=== PATIENT | female | born 2000 | race Two or more races ===

== ENCOUNTER 2020-01-15 08:13 | Observation (INO) | payer MEDICAID ==
[~2020-01-15] VITALS: Ht 160 cm; Wt 70.3 kg
[2020-01-15] MEDS ORDERED: FERR325T6 MT (09:15)
[2020-01-15] MEDS ORDERED: FOLI-43 MT (09:15)
[2020-01-15] MEDS ORDERED: PNV1TABL50 MT (09:15)
[2020-01-15 09:54] LABS: BASOPHILS % 0.3 % (0.0-2.0); EOSINOPHILS % 0.1 % (0.0-5.0); HEMATOCRIT. 35.3 % (36.0-48.0); HEMOGLOBIN. 12.1 g/dL (12.0-16.0); LYMPHOCYTES % 10.1 % (20.0-50.0); MEAN CORPUSCULAR HEMOGLOBIN 31.3 pg (28.0-32.0); MEAN CORPUSCULAR VOLUME 91.1 fL (81.0-99.0); MEAN PLATELET VOLUME 7.2 fl (7.4-10.4); MONOCYTES % 5.9 % (2.0-8.0); NEUTROPHILS % 83.6 % (40.0-76.0); PLATELET 332 x1000/uL (130-400); RED BLOOD CELL COUNT 3.87 mill/uL (4.2-5.4); RED CELL DISTRIBUTION WIDTH 13.4 % (11.6-14.6)
[2020-01-15 09:55] LABS: CLARITY URINE TURBID (CLEAR); COLOR URINE DARK YELLOW (YELLOW); KETONES URINE TRACE (NEGATIVE); LEUKOCYTE ESTERASE URINE 3+ (NEGATIVE); NITRITE URINE NEGATIVE (NEGATIVE); OCCULT BLOOD URINE TRACE (NEGATIVE); PROTEIN URINE 3+ (NEGATIVE)
[2020-01-15] MEDS ORDERED: CEFAZOLIN 2,000 MG in DEXT 5% WATER 100 ML IV NR (11:00)
[2020-01-15] MEDS ORDERED: LACTATED RINGERS 1,000 ML IV SCH (11:00)
== END 2020-01-15 13:00 | disposition home or self-care (01) ==
LOC: 8 EST LDRP 08:13
PROVIDERS: ADMIT Obstetrics & Gynecology; ATTEND Obstetrics & Gynecology
DX: O9A.212 Injury, poisoning and certain other consequences of external causes complicating pregnancy, second trimester (principal); O21.2 Late vomiting of pregnancy; K92.0 Hematemesis; M54.9 Dorsalgia, unspecified; Z3A.24 24 weeks gestation of pregnancy; W10.9XXA Fall (on) (from) unspecified stairs and steps, initial encounter; Y93.89 Activity, other specified; Y92.89 Other specified places as the place of occurrence of the external cause; Y99.8 Other external cause status
CPT/HCPCS: 36415; 76805; 81003; 85025; 87077; 87086; 87186; 96361; 96365; 99281; G0378; J0690; J7060; 96360; J7120

== ENCOUNTER 2020-01-18 22:05 | Observation (INO) | payer MEDICAID ==
[~2020-01-18] VITALS: Ht 160 cm; Wt 70.8 kg
[~2020-01-18 22:05] MED LIST: FERR325T6 MT; FOLI-43 MT; PNV1TABL50 MT
[2020-01-19] MEDS ORDERED: MVI, ADULT NO.1 10 ML in DEXT 5%/LACTATED RINGERS 1,000 ML IV ONE ×2 (00:30)
[2020-01-19 01:10] LABS: CHLORIDE 109 mEq/L (98-107)
== END 2020-01-19 02:08 | disposition home or self-care (01) ==
LOC: 8 EST LDRP 22:05
PROVIDERS: ADMIT Specialist; ATTEND Specialist
DX: O21.8 Other vomiting complicating pregnancy (principal); K92.0 Hematemesis; Z3A.25 25 weeks gestation of pregnancy
CPT/HCPCS: 36415; 80048; 96365; 96366; 99281; G0378; J3490; J7121

== ENCOUNTER 2020-02-22 06:35 | Observation (INO) | payer MEDICAID ==
[~2020-02-22] VITALS: Ht 160 cm; Wt 72.6 kg
== END 2020-02-22 08:45 | disposition home or self-care (01) ==
LOC: 8 EST LDRP 06:35
PROVIDERS: ADMIT Specialist; ATTEND Specialist
DX: O21.2 Late vomiting of pregnancy (principal); K92.0 Hematemesis; O26.893 Other specified pregnancy related conditions, third trimester; R10.13 Epigastric pain; Z3A.30 30 weeks gestation of pregnancy
CPT/HCPCS: 76805; 76818; 99281; G0378

== ENCOUNTER 2020-02-22 09:01 | Emergency (ER) | payer MEDICAID ==
[~2020-02-22] VITALS: Ht 160 cm; Wt 73.0 kg
[2020-02-22] MEDS ORDERED: SODIUM CHLORIDE 0.9% 1,000 ML IV ONE (10:15)
[2020-02-22 11:32] LABS: BASOPHILS % 0.3 % (0.0-2.0); EOSINOPHILS % 0.2 % (0.0-5.0); HEMATOCRIT. 33.1 % (36.0-48.0); HEMOGLOBIN. 11.5 g/dL (12.0-16.0); LYMPHOCYTES % 18.8 % (20.0-50.0); MEAN CORPUSCULAR HEMOGLOBIN 31.6 pg (28.0-32.0); MEAN CORPUSCULAR VOLUME 90.3 fL (81.0-99.0); MEAN PLATELET VOLUME 7.6 fl (7.4-10.4); MONOCYTES % 5.1 % (2.0-8.0); NEUTROPHILS % 75.6 % (40.0-76.0); PLATELET 354 x1000/uL (130-400); RED BLOOD CELL COUNT 3.66 mill/uL (4.2-5.4); RED CELL DISTRIBUTION WIDTH 13.4 % (11.6-14.6)
[2020-02-22 11:35] LABS: CHLORIDE 107 mEq/L (98-107)
[2020-02-22 11:39] LABS: INR 0.9; PARTIAL THROMBOPLASTIN TIME 29.7 sec (23.4-31.0); PROTHROMBIN TIME 10.1 sec (9.6-11.0)
[2020-02-22 11:43] LABS: CLARITY URINE CLOUDY (CLEAR); COLOR URINE YELLOW (YELLOW); KETONES URINE NEGATIVE (NEGATIVE); LEUKOCYTE ESTERASE URINE 3+ (NEGATIVE); NITRITE URINE POSITIVE (NEGATIVE); OCCULT BLOOD URINE NEGATIVE (NEGATIVE); PH URINE 6.5 (4.5-8.0); PROTEIN URINE TRACE (NEGATIVE); SPECIFIC GRAVITY URINE 1.019 (1.005-1.030); UROBILINOGEN URINE 0.2 E.U./dL (0.2-1.0)
[2020-02-22 13:20] VITALS: BP 105/69
== END 2020-02-22 13:23 | disposition home or self-care (01) ==
LOC: ER 09:01
DX: O23.43 Unspecified infection of urinary tract in pregnancy, third trimester (principal); O21.8 Other vomiting complicating pregnancy; Z3A.31 31 weeks gestation of pregnancy
CPT/HCPCS: 36415; 80053; 81003; 81025; 82270; 83690; 84702; 85025; 85610; 85730; 86850; 86900; 86901; 87077; 87086; 87186; 96360; 96361; 99283; J7030